=== PATIENT | female | born 1990 | race Caucasian/White ===

== ENCOUNTER 2024-02-07 13:52 | Inpatient (IN) | payer OTHER ==
[~2024-02-07] VITALS: Ht 165.1 cm; Wt 89.4 kg
[2024-02-07] MEDS: ONDANSETRON ODT 4 MG TAB PO ONE (14:27)
[2024-02-07] MEDS: MECLIZINE HCL 25 MG TAB PO ONE (14:27)
[2024-02-07 14:31] LABS: Basophils # (auto) 0 10 ^3/uL (0-0.2); Eosinophils # (auto) 0 10 ^3/uL (0-0.8); Hemoglobin 15.4 g/dL (12.2-16.2); Monocytes # (auto) 1.2 10 ^3/uL (0-1.3); Monocytes % (auto) 10.4 % (0.0-12.0); Neutrophils # (auto) 9.8 10 ^3/uL (1.6-8.6); Red Cell Distribution Width 14.1 % (11.8-14.3)
[2024-02-07 14:33] LABS: Basophils % (auto) 0.1 % (0.0-2.0); Hematocrit 45.4 % (36.0-46.0); Lymphocytes # (auto) 0.7 10 ^3/uL (0.4-5.4); Lymphocytes % (auto) 6.1 % (10.0-50.0); Mean Corpuscular Hemoglobin 34.8 pg (28.0-32.0); Mean Corpuscular Hgb Conc. 33.8 g/dL (32.0-36.0); Mean Corpuscular Volume 102.8 fL (80.0-100.0); Neutrophils % (auto) 83.4 % (37.0-80.0); Nucleated Red Blood Cells % 0.2 %; Red Blood Cells 4.41 10^6/uL (4.0-5.20); White Blood Cell 11.7 10^3/uL (4.4-10.8)
[2024-02-07 14:42] LABS: INR 1.02 (0.9-1.15); Partial Thromboplastin Time 29.3 SEC (24.5-34.5); Prothrombin Time 10.8 sec (9.3-11.8)
[2024-02-07 14:59] LABS: Alanine Aminotransferase 45 U/L (7-40); Albumin 5.9 g/dL (3.2-4.8); Alkaline Phosphatase 90 U/L (46-116); Anion Gap 24 (5-15); Aspartate Aminotransferase 48 U/L (13-40); BUN/Creatinine Ratio 14.9 (10.0-20.0); Blood Urea Nitrogen 32 mg/dL (9-23); Calcium 11.4 mg/dL (8.7-10.4); Carbon Dioxide 11 mmol/L (20-30); Chloride 98 mmol/L (98-107); Glucose 150 mg/dL (74-106); Magnesium 2.2 mg/dL (1.6-2.6); Potassium 3.8 mmol/L (3.5-5.1); Sodium 133 mmol/L (136-145)
[2024-02-07 15:00] LABS: Bilirubin, Total 0.8 mg/dL (0.2-1.0)
[2024-02-07 15:35] LABS: Urine Bacteria FEW /hpf (None Seen); Urine Blood 3+ /uL (Negative); Urine Clarity Turbid (Clear); Urine Color Yellow (Yellow); Urine Hyaline Cast MANY /lpf (0 - 2); Urine Mucus FEW (None Seen); Urine Protein, UAD 3+ (Negative); Urine Specific Gravity 1.024 (1.001-1.035); Urine Urobilinogen 6 mg/dL (Negative); Urine WBC 30 /hpf (0 - 5)
[2024-02-07] MEDS: cloNIDine HCL 0.1 MG TAB PO ONE (17:04)
[2024-02-07 17:11] LABS: Base Excess -9.2 mmol/L (-2.0-2.0)
[2024-02-07 18:36] VITALS: PULSE 110; RESP 16; O2SAT 97
[2024-02-07] MEDS: cefTRIAXone 1GM/50ML D5W 50 ML IV ONE (19:03)
[2024-02-07 19:40] VITALS: PULSE 96; RESP 20; O2SAT 98
[2024-02-07] MEDS: MAALOX PLUS or MAALOX 30 ML PO ONE (20:07)
[2024-02-07] MEDS: diphenhdrAMINE HCL 50 MG/1 ML VL IV ONE (20:07)
[2024-02-07] MEDS: LIDOCAINE VISCOUS 2% 15ML UD PO ONE (20:07)
[2024-02-07] MEDS: SODIUM CHLORIDE 0.9% 1,000 ML IV SCH (21:30)
[2024-02-07] MEDS ORDERED: ALBUTEROL SULF 2.5 MG/0.5ML(0.5%) NEB SOLN NEB PRN (21:30)
[2024-02-07] MEDS ORDERED: ONDANSETRON HCL 4 MG/2 ML VIAL IV PRN (21:30)
[2024-02-07] MEDS ORDERED: DOCUSATE SOD 100 MG CAP PO PRN (21:30)
[2024-02-07] MEDS ORDERED: HYDROcodone-ACET 5/325MG TAB PO PRN (21:30)
[2024-02-07] MEDS: SODIUM CHLORIDE 0.9% 1,000 ML IV ONE (21:56)
[2024-02-07] MEDS ORDERED: NITROGLYCERIN 0.4 MG SL TAB SL PRN (22:15)
[2024-02-07] MEDS ORDERED: MORPHINE SULFATE INJ 2 MG/ml SYRG IV PRN (22:15)
[2024-02-07] MEDS: METOPROLOL TARTRATE 25 MG TAB PO SCH (22:33)
[2024-02-07 23:02] VITALS: BP 158/109; PULSE 108; RESP 18; TEMP 98; O2SAT 96
[2024-02-08] VITALS (11 sets, daily range): BP systolic 112–143; BP diastolic 76–102; PULSE 67–98; RESP 16–19; TEMP 98.1–98.7; O2SAT 96–99
[2024-02-08 00:30] LABS: Alanine Aminotransferase 33 U/L (7-40); Albumin 5.2 g/dL (3.2-4.8); Alkaline Phosphatase 73 U/L (46-116); Anion Gap 18 (5-15); Aspartate Aminotransferase 33 U/L (13-40); BUN/Creatinine Ratio 15.3 (10.0-20.0); Bilirubin, Total 0.6 mg/dL (0.2-1.0); Blood Urea Nitrogen 27 mg/dL (9-23); Calcium 10.1 mg/dL (8.7-10.4); Carbon Dioxide 16 mmol/L (20-30); Chloride 100 mmol/L (98-107); Glucose 128 mg/dL (74-106); Potassium 3.3 mmol/L (3.5-5.1); Sodium 134 mmol/L (136-145); Total Protein 8.2 g/dL (5.7-8.2)
[2024-02-08] MEDS ORDERED: ALBU2TAB11 PO (05:34)
[2024-02-08 06:43] LABS: Alanine Aminotransferase 29 U/L (7-40); Albumin 4.8 g/dL (3.2-4.8); Alkaline Phosphatase 65 U/L (46-116); Anion Gap 14 (5-15); Aspartate Aminotransferase 31 U/L (13-40); BUN/Creatinine Ratio 18.4 (10.0-20.0); Blood Urea Nitrogen 23 mg/dL (9-23); Calcium 9.8 mg/dL (8.7-10.4); Carbon Dioxide 20 mmol/L (20-30); Chloride 101 mmol/L (98-107); Glucose 93 mg/dL (74-106); Potassium 2.9 mmol/L (3.5-5.1); Sodium 135 mmol/L (136-145)
[2024-02-08 06:44] LABS: Bilirubin, Total 0.7 mg/dL (0.2-1.0); Total Protein 7.5 g/dL (5.7-8.2)
[2024-02-08 06:46] LABS: Basophils # (auto) 0 10 ^3/uL (0-0.2); Basophils % (auto) 0.3 % (0.0-2.0); Eosinophils # (auto) 0 10 ^3/uL (0-0.8); Eosinophils % (auto) 0.1 % (0.0-7.0); Hematocrit 38.8 % (36.0-46.0); Hemoglobin 13.3 g/dL (12.2-16.2); Lymphocytes # (auto) 1.4 10 ^3/uL (0.4-5.4); Lymphocytes % (auto) 15.9 % (10.0-50.0); Mean Corpuscular Hemoglobin 34.6 pg (28.0-32.0); Mean Corpuscular Hgb Conc. 34.3 g/dL (32.0-36.0); Monocytes # (auto) 1.4 10 ^3/uL (0-1.3); Monocytes % (auto) 15.8 % (0.0-12.0); Neutrophils # (auto) 5.9 10 ^3/uL (1.6-8.6); Neutrophils % (auto) 67.9 % (37.0-80.0); Red Blood Cells 3.85 10^6/uL (4.0-5.20); Red Cell Distribution Width 14.1 % (11.8-14.3); White Blood Cell 8.8 10^3/uL (4.4-10.8)
[2024-02-08] MEDS: ASPirin 81 mg TAB PO SCH (09:29)
[2024-02-08] MEDS: cefTRIAXone 1GM/50ML D5W 50 ML IV SCH (09:30)
[2024-02-08] MEDS: SODIUM CHLORIDE 0.9% 1,000 ML IV SCH (12:15)
[2024-02-08] MEDS: POTASSIUM EFFERVESENT TAB 25 MEQ PO ONE (15:38)
[2024-02-08] MEDS: ACETAMINOPHEN 325 MG TAB PO PRN (15:41)
[2024-02-08 22:33] LABS: Amphetamine Screen, Urine Neg (NEGATIVE); Barbiturate Scree,Urine Neg (NEGATIVE); Benzodiazephine Screen, Urine Neg (NEGATIVE); Cocaine Screen, Urine Neg (NEGATIVE)
[2024-02-08 22:34] LABS: Cannabinoid Screen, Urine Pos (NEGATIVE); Opiate Scree,Urine Neg (NEGATIVE); Phencyclidine Screen, Urine Neg (NEGATIVE)
[2024-02-09 01:00] VITALS: BP 109/66; PULSE 81; RESP 16; TEMP 98; O2SAT 97
[2024-02-09 05:00] VITALS: BP 128/77; PULSE 75; RESP 17; TEMP 98.3; O2SAT 98
[2024-02-09 08:00] VITALS: PULSE 75
[2024-02-09 08:10] VITALS: O2SAT 100
[2024-02-09 08:36] VITALS: BP 135/87; PULSE 83; RESP 20; TEMP 97.5; O2SAT 100
[2024-02-09] MEDS ORDERED: CIPR-173 PO (09:22)
[2024-02-09] MEDS ORDERED: METO25TA5 PO (09:22)
[2024-02-09 09:46] VITALS: BP 135/87; PULSE 83; TEMP 97.5
== END 2024-02-09 10:30 | disposition home or self-care (01) | DRG 871 ==
LOC: ER 13:52 → TELE 22:15 → TELE-WESTW 02-08 03:00
PROVIDERS: ADMIT Nurse Practitioner Family; ATTEND Nurse Practitioner Family
DX: A41.9 Sepsis, unspecified organism (principal); N17.0 Acute kidney failure with tubular necrosis; E87.1 Hypo-osmolality and hyponatremia; N39.0 Urinary tract infection, site not specified; E87.4 Mixed disorder of acid-base balance; E87.6 Hypokalemia; E86.0 Dehydration; I16.0 Hypertensive urgency; E66.9 Obesity, unspecified; I10 Essential (primary) hypertension; I49.3 Ventricular premature depolarization; J45.909 Unspecified asthma, uncomplicated; F12.10 Cannabis abuse, uncomplicated; Z68.35 Body mass index [BMI] 35.0-35.9, adult; Z79.899 Other long term (current) drug therapy
CPT/HCPCS: 36415; 36600; 71045; 80053; 80307; 81001; 82010; 82140; 82805; 82962; 83036; 83735; 83880; 84443; 84484; 84702; 85025; 85610; 85730; 93005; 93306; G0378; Q0162